=== PATIENT | female | born 1950 | race Caucasian/White ===

== ENCOUNTER 2017-12-29 17:46 | Emergency (ER) | payer MEDICARE, OTHER ==
[~2017-12-29] VITALS: Ht 160 cm; Wt 75.0 kg
[~2017-12-29 17:46] MED LIST: DICL100G15 TOP; METH4TAB3 PO
[2017-12-29] MEDS ORDERED: HYDR-565 PO (18:42)
[2017-12-29 18:58] VITALS: BP 145/80
== END 2017-12-29 19:01 | disposition home or self-care (01) ==
LOC: ER 17:46
DX: S93.401A Sprain of unspecified ligament of right ankle, initial encounter (principal); Z88.5 Allergy status to narcotic agent; X50.1XXA Overexertion from prolonged static or awkward postures, initial encounter; Y93.89 Activity, other specified; Y92.89 Other specified places as the place of occurrence of the external cause; Y99.9 Unspecified external cause status
CPT/HCPCS: 73610; 99284; A6449

== ENCOUNTER 2021-06-07 12:02 | Emergency (ER) | payer MEDICARE ==
[~2021-06-07] VITALS: Ht 160 cm; Wt 75.0 kg
[~2021-06-07 12:02] MED LIST changes: -DICL100G15 TOP; -METH4TAB3 PO; +PANT-47 PO
--- NOTE | 2021-06-07 12:24 | NUR ---
PORT CXR AT BEDSIDE.
[2021-06-07 12:34] LABS: BASOPHILS # (AUTO) 0.1 X10'3 (0-0.2); EOSINOPHILS # (AUTO) 0.1 X10'3 (0-0.9); MONOCYTES # (AUTO) 0.3 X10'3 (0-0.9); NEUTROPHILS # (AUTO) 1.6 X10'3 (1.8-7.7); WHITE BLOOD COUNT 3.6 X10'3 (4.5-11.0)
[2021-06-07 12:44] LABS: BASOPHILS % (AUTO) 1.9 % (0-1); EOSINOPHILS % (AUTO) 3.9 % (0-6); HEMATOCRIT 23.9 % (35.0-45.0); LYMPHOCYTES # (AUTO) 1.6 X10'3 (1.1-4.8); LYMPHOCYTES % (AUTO) 43.5 % (21-51); MEAN CORPUSCULAR HEMOGLOBIN 19.7 PG (27.0-31.0); MEAN CORPUSCULAR HGB CONC 29.4 g/dL (33.0-36.5); MEAN CORPUSCULAR VOLUME 66.9 FL (78-98); MEAN PLATELET VOLUME 7.3 FL (7.4-10.4); MONOCYTES % (AUTO) 8.1 % (2-12); NEUTROPHILS % (AUTO) 42.6 % (42-75); PLATELET COUNT 427 X10'3 (140-440); RED BLOOD COUNT 3.57 X10'6 (4.20-5.60); RED CELL DISTRIBUTION WIDTH 20.8 % (11.5-14.5)
[2021-06-07 12:47] LABS: ALANINE AMINOTRANSFERASE 21 U/L (12-78); ALBUMIN 3.7 G/DL (3.4-5.0); ALBUMIN/GLOBULIN RATIO 1.1 (1.1-1.5); ALKALINE PHOSPHATASE 107 IU/L (46-116); ANION GAP 8 (8-16); ASPARTATE AMINO TRANSFERASE 20 U/L (10-37); BILIRUBIN,TOTAL 0.6 MG/DL (0.1-1.0); BLOOD UREA NITROGEN 9 MG/DL (7-18); BUN/CREATININE RATIO 9.7 (6.6-38.0); CALCIUM 8.3 MG/DL (8.5-10.1); CHLORIDE 107 MMOL/L (99-107); CREATININE 0.93 MG/DL (0.40-0.90); GLUCOSE 86 MG/DL (70-104); LIPASE 137 U/L (73-393); POTASSIUM 3.8 MMOL/L (3.5-5.1); SODIUM 142 MMOL/L (135-145); TOTAL CARBON DIOXIDE 27.3 MMOL/L (24-32); TOTAL PROTEIN 7.1 G/DL (6.4-8.2); eGFR 60 ML/MIN
[2021-06-07 13:00] LABS: ANISOCYTOSIS 3+; ELLIPTOCYTES FEW; HYPOCHROMASIA 1+; MICROCYTOSIS 2+; PLATELET ESTIMATE NORMAL
[2021-06-07 13:01] LABS: LARGE PLATELETS FEW
[2021-06-07 15:25] VITALS: BP 132/77
[2021-06-07 15:36] LABS: CLARITY,URINE CLEAR (Clear); COLOR,URINE YELLOW (Yellow); GLUCOSE, URINE NEGATIVE (Neg); KETONES,URINE NEGATIVE (Neg); LEUKOCYTE ESTERASE ,URINE NEGATIVE (Neg); NITRITES, URINE NEGATIVE (Neg); OCCULT BLOOD,URINE NEGATIVE (Neg); PROTEIN,URINE NEGATIVE (Neg); UROBILINOGEN,URINE 0.2 E.U/dL (0.2-1.0)
[2021-06-07 15:39] LABS: UA COLLECTION TYPE CLN CATCH MIDSTREAM
[2021-06-07 15:40] VITALS: BP 134/45
[2021-06-07 17:41] VITALS: BP 137/61
[2021-06-07 18:10] VITALS: BP 156/67
[2021-06-12] MEDS ORDERED: PANT40TA54 PO (11:42)
== END 2021-06-07 18:11 | disposition home or self-care (01) ==
LOC: ER 12:04
DX: D62 Acute posthemorrhagic anemia (principal); K44.9 Diaphragmatic hernia without obstruction or gangrene; R53.1 Weakness; R06.02 Shortness of breath; R53.83 Other fatigue; M54.6 Pain in thoracic spine; R11.10 Vomiting, unspecified; K92.1 Melena; Z79.899 Other long term (current) drug therapy
CPT/HCPCS: 36415; 36430; 71045; 80053; 81003; 83690; 85008; 85025; 86885; 86900; 86901; 86920; 99291; P9016

== ENCOUNTER 2021-06-19 07:00 | Day surgery (SDC) | payer MEDICARE ==
[2021-06-19] VITALS (17 sets, daily range): BP systolic 131–178; BP diastolic 70–88
[~2021-06-19] VITALS: Ht 160 cm; Wt 74.8 kg
[~2021-06-19 07:00] MED LIST changes: +BUPIVAcaine/PF 2.5mg/ml (0.25%) 10ml vial ONE; +LIDOcaine 1% 30ml preserv. free vial ONE; -PANT-47 PO; +PANT40TA54 PO; +cefazolin/dext.iso 2gm/100ml IV ONE; +famotidine 20mg tablet PO ONE; +ringers solution, lacted 1,000 ML IV SCH
[2021-06-19 07:27] LABS: ISTAT CREATININE 0.9 mg/dL (0.6-1.1); ISTAT HGB 10.5 g/dl (12.0-16.0); ISTAT IONIZED CALCIUM 1.18 mmol/L (1.03-1.32); ISTAT K 3.8 mmol/L (3.5-5.1); POC BUN/CREATININE RATIO 11.1 (6.6-38.0)
[2021-06-19] MEDS ORDERED: midazolam 1 mg/ML 2ml injection ONE (07:28)
[2021-06-19] MEDS ORDERED: propofol inj 20 ML IV ONE (07:28)
[2021-06-19] MEDS ORDERED: fentaNYL /PF 50mcg/ml 5ml ampule ONE (07:28)
[2021-06-19] MEDS ORDERED: rocuronium 10mg/ml inj IV ONE (07:28)
[2021-06-19] MEDS ORDERED: sevoflurane 250ml liquid IH ONE (07:32)
[2021-06-19] MEDS ORDERED: ondansetron/PF 4mg/2ml inj ONE (07:32)
[2021-06-19] MEDS ORDERED: dexamethasone sod phosphate 4mg/ml inj. ONE (07:48)
[2021-06-19] MEDS ORDERED: proCHLORperazine 10 MG/2 ml inj IV PRN (07:50)
[2021-06-19] MEDS ORDERED: morphine 4 MG/ML inj SYRINge IV PRN (07:50)
[2021-06-19] MEDS ORDERED: meperidine/PF 25mg/ml syringe IV PRN ×3 (07:50)
[2021-06-19] MEDS ORDERED: ringers solution, lacted 1,000 ML IV SCH (07:50)
[2021-06-19] MEDS ORDERED: ondansetron/PF 4mg/2ml inj IV PRN ×2 (07:50→10:20)
[2021-06-19] MEDS ORDERED: morphine 2 MG/ML inj. syringe IV PRN (07:50)
[2021-06-19] MEDS ORDERED: diatrozoate meglu/diatrozoate sod (37% iodine) 120ML oral solution ONE (08:00)
[2021-06-19] MEDS ORDERED: acetaminophen 1,000mg/100ml IV 100 ML IV ONE (09:55)
[2021-06-19] MEDS ORDERED: glycopyrrolate 0.2mg/ml inj ONE (10:16)
[2021-06-19] MEDS ORDERED: neostigmine methylsulfate 1 MG/ML 10ml vial ONE (10:16)
[2021-06-19] MEDS ORDERED: HYDROcodone/acetaminophen 7.5MG/325MG per 15ml UD CUP PO PRN ×2 (10:20)
[2021-06-19] MEDS ORDERED: Potassium Cl inj 20 MEQ in ringers solution, lacted 1,000 ML IV SCH (10:20)
[2021-06-19] MEDS ORDERED: acetaminophen 325mg/10.15ml oral unit dose solution PO PRN (10:20)
--- NOTE | 2021-06-19 10:20 | NUR ---
Received from OR via , accompanied by Anesthesiologist and report given by Anesthesiolgist. PATIENT waking up , no s/s of PAIN, V/S WNL, SCD ON , PIV 20G RUE, DERMABONDED LAPS SITES CLOSED clear no drainage TO ABDOMEN.
--- NOTE | 2021-06-19 12:38 | NUR ---
b/p persistantly high orders for labatolol to be given
[2021-06-19] MEDS ORDERED: labetalol 20mg/4ml (5mg/ml) syringe IV PRN (12:40)
--- NOTE | 2021-06-19 16:40 | NUR ---
PATIENT A&OX4 ,DENIES PAIN, V/S WNL, SCD OFF , PIV 20G RUE D/C, DERMABONDED LAPS SITES CLOSED clear no drainage TO ABDOMEN. I HAVE REVIEWED D/C INSTRUCTIONS AND DIETARY INSTRUCTIONS WITH PATIENT AND SHE HAS VERBALIZED UNDERSTANDING. PATIENT D/C HOME WITH ALL BELONGINGS AND FAMILY GAVE TRANSPORT HOME.
== END 2021-06-19 16:40 | disposition home or self-care (01) ==
LOC: PAS 07:00
PROVIDERS: ATTEND Surgery
DX: K44.9 Diaphragmatic hernia without obstruction or gangrene (principal); K25.9 Gastric ulcer, unspecified as acute or chronic, without hemorrhage or perforation; K21.9 Gastro-esophageal reflux disease without esophagitis; Z79.899 Other long term (current) drug therapy; Z88.5 Allergy status to narcotic agent; Z98.51 Tubal ligation status; Z87.11 Personal history of peptic ulcer disease; Z20.822 Contact with and (suspected) exposure to COVID-19
CPT/HCPCS: 36415; 43281; 71045; 74220; 80047; 82948; C1758; J0131; J1100; J2001; J2175; J2250; J2405; J2704; J2710; J3010; J3490; J7120; Q9963; U0003; U0005; Z7506; Z7508; Z7512; A4618

== ENCOUNTER 2021-06-23 07:58 | Emergency (ER) | payer MEDICARE ==
[~2021-06-23] VITALS: Ht 160 cm; Wt 75.0 kg
[~2021-06-23 07:58] MED LIST changes: -BUPIVAcaine/PF 2.5mg/ml (0.25%) 10ml vial ONE; -LIDOcaine 1% 30ml preserv. free vial ONE; -cefazolin/dext.iso 2gm/100ml IV ONE; -famotidine 20mg tablet PO ONE; -ringers solution, lacted 1,000 ML IV SCH
[2021-06-23 08:04] VITALS: BP 136/75
[2021-06-23] MEDS ORDERED: normal saline 1000ML IV soln IVB ONE (08:20)
[2021-06-23 09:17] LABS: BASOPHILS % (AUTO) 0.1 % (0-1); EOSINOPHILS % (AUTO) 0.1 % (0-6); HEMATOCRIT 29.6 % (35.0-45.0); HEMOGLOBIN 9.2 g/dl (12.0-16.0); LYMPHOCYTES # (AUTO) 0.9 X10'3 (1.1-4.8); LYMPHOCYTES % (AUTO) 6.4 % (21-51); MEAN CORPUSCULAR HEMOGLOBIN 21.3 PG (27.0-31.0); MEAN CORPUSCULAR HGB CONC 31.2 g/dL (33.0-36.5); MEAN CORPUSCULAR VOLUME 68.2 FL (78-98); MEAN PLATELET VOLUME 6.9 FL (7.4-10.4); MONOCYTES # (AUTO) 1.1 X10'3 (0-0.9); MONOCYTES % (AUTO) 7.6 % (2-12); NEUTROPHILS # (AUTO) 12.4 X10'3 (1.8-7.7); NEUTROPHILS % (AUTO) 85.8 % (42-75); PLATELET COUNT 352 X10'3 (140-440); RED BLOOD COUNT 4.34 X10'6 (4.20-5.60); RED CELL DISTRIBUTION WIDTH 24.2 % (11.5-14.5); WHITE BLOOD COUNT 14.4 X10'3 (4.5-11.0)
[2021-06-23 09:30] LABS: ALANINE AMINOTRANSFERASE 26 U/L (12-78); ALBUMIN/GLOBULIN RATIO 0.7 (1.1-1.5); ALKALINE PHOSPHATASE 139 IU/L (46-116); ANION GAP 10 (8-16); ASPARTATE AMINO TRANSFERASE 30 U/L (10-37); BILIRUBIN,TOTAL 1.3 MG/DL (0.1-1.0); BLOOD UREA NITROGEN 11 MG/DL (7-18); BUN/CREATININE RATIO 10.9 (6.6-38.0); CALCIUM 8.7 MG/DL (8.5-10.1); CHLORIDE 99 MMOL/L (99-107); CREATININE 1.01 MG/DL (0.40-0.90); GLUCOSE 109 MG/DL (70-104); MAGNESIUM 2.3 MG/DL (1.5-2.4); POTASSIUM 4.1 MMOL/L (3.5-5.1); SODIUM 137 MMOL/L (135-145); TOTAL PROTEIN 7.2 G/DL (6.4-8.2); eGFR 54 ML/MIN
--- NOTE | 2021-06-23 09:58 | NUR ---
PT ATTEMPTED TO VOID FOR UA SHE IS UNABLE AT THIS TIME
[2021-06-23] MEDS ORDERED: ONDA4TAB6 PO (11:46)
== END 2021-06-23 12:39 | disposition home or self-care (01) ==
LOC: ER 07:59
DX: R10.84 Generalized abdominal pain (principal); R63.0 Anorexia; R19.7 Diarrhea, unspecified; R05 Cough; Z98.890 Other specified postprocedural states; Z88.5 Allergy status to narcotic agent; Z79.899 Other long term (current) drug therapy
CPT/HCPCS: 36415; 71045; 80053; 83735; 85025; 99284

== ENCOUNTER 2021-07-25 12:01 | Outpatient (CLI) | payer MEDICARE ==
[~2021-07-25 12:01] MED LIST changes: +ONDA4TAB6 PO
[2021-07-25] MEDS ORDERED: BARIUM SULFATE 340 ML SUSP.RECON***PROCEDURE AREA ONLY**DONT ENTER PO ONE (14:00)
== END 2021-07-25 23:59 | disposition home or self-care (01) ==
LOC: RAD 12:01
PROVIDERS: ATTEND Surgery
DX: R13.10 Dysphagia, unspecified (principal)
CPT/HCPCS: 74220

== ENCOUNTER 2021-08-01 08:59 | Emergency (ER) | payer MEDICARE, OTHER ==
[2021-08-01] VITALS (8 sets, daily range): BP systolic 113–141; BP diastolic 59–80
[~2021-08-01] VITALS: Ht 160 cm; Wt 69.5 kg
[2021-08-01] MEDS ORDERED: ondansetron/PF 4mg/2ml inj IV ONE (09:40)
[2021-08-01] MEDS ORDERED: normal saline 1000ML IV soln IVB ONE (09:40)
[2021-08-01 10:09] LABS: ALANINE AMINOTRANSFERASE 24 U/L (12-78); ALBUMIN 3.8 G/DL (3.4-5.0); ALBUMIN/GLOBULIN RATIO 0.8 (1.1-1.5); ALKALINE PHOSPHATASE 100 IU/L (46-116); ANION GAP 20 (8-16); ASPARTATE AMINO TRANSFERASE 25 U/L (10-37); BILIRUBIN,TOTAL 1.2 MG/DL (0.1-1.0); BLOOD UREA NITROGEN 16 MG/DL (7-18); BUN/CREATININE RATIO 17.6 (6.6-38.0); CALCIUM 9.2 MG/DL (8.5-10.1); CHLORIDE 103 MMOL/L (99-107); CREATININE 0.91 MG/DL (0.40-0.90); GLUCOSE 91 MG/DL (70-104); LIPASE 113 U/L (73-393); POTASSIUM 3.9 MMOL/L (3.5-5.1); SODIUM 144 MMOL/L (135-145); TOTAL CARBON DIOXIDE 21.3 MMOL/L (24-32); TOTAL PROTEIN 8.3 G/DL (6.4-8.2); eGFR 61 ML/MIN
[2021-08-01 10:36] LABS: BASOPHILS # (AUTO) 0.1 X10'3 (0-0.2); BASOPHILS % (AUTO) 1.5 % (0-1); EOSINOPHILS % (AUTO) 0.9 % (0-6); LYMPHOCYTES # (AUTO) 1.3 X10'3 (1.1-4.8); LYMPHOCYTES % (AUTO) 36.3 % (21-51); MEAN PLATELET VOLUME 8.5 FL (7.4-10.4); MONOCYTES # (AUTO) 0.3 X10'3 (0-0.9); MONOCYTES % (AUTO) 9.5 % (2-12); NEUTROPHILS # (AUTO) 1.8 X10'3 (1.8-7.7); NEUTROPHILS % (AUTO) 51.8 % (42-75); PLATELET COUNT 370 X10'3 (140-440); WHITE BLOOD COUNT 3.5 X10'3 (4.5-11.0)
[2021-08-01 10:37] LABS: HEMATOCRIT 33.5 % (35.0-45.0); HEMOGLOBIN 11.3 g/dl (12.0-16.0); MEAN CORPUSCULAR VOLUME 66.7 FL (78-98); RED BLOOD COUNT 5.02 X10'6 (4.20-5.60)
[2021-08-01 10:38] LABS: MEAN CORPUSCULAR HEMOGLOBIN 22.5 PG (27.0-31.0); MEAN CORPUSCULAR HGB CONC 33.7 g/dL (33.0-36.5); RED CELL DISTRIBUTION WIDTH 22.7 % (11.5-14.5)
[2021-08-01] MEDS ORDERED: fentaNYL/PF 50MCG/1 ML 2ML syringe ONE (10:57)
[2021-08-01] MEDS ORDERED: LIDOcaine Viscous 15ml cup ONE (10:58)
[2021-08-01] MEDS ORDERED: MIDAZolam 1 MG/ML 5ML VIAL ONE (10:58)
[2021-08-01 11:09] LABS: ANISOCYTOSIS 3+; ELLIPTOCYTES 1+; MICROCYTOSIS 2+; PLATELET ESTIMATE NORMAL
[2021-08-01 11:10] LABS: SPHEROCYTES FEW
[2021-08-01] MEDS ORDERED: NO HOME MEDS (11:14)
== END 2021-08-01 13:23 | disposition home or self-care (01) ==
LOC: ER 09:00
DX: K22.2 Esophageal obstruction (principal); R11.2 Nausea with vomiting, unspecified; R13.10 Dysphagia, unspecified; Z98.890 Other specified postprocedural states; Z88.5 Allergy status to narcotic agent
CPT/HCPCS: 36415; 43248; 43249; 80053; 83690; 85008; 85025; 85610; 96360; 96361; 99152; 99153; 99285; C1726; C1769; J2250; J3010; J7030; J7040; Z7512; A4620